=== PATIENT | female | born 1980 | race Caucasian/White ===

== ENCOUNTER 2020-08-03 17:20 | Emergency (ER) | payer OTHER ==
[~2020-08-03] VITALS: Ht 160 cm; Wt 69.9 kg
[2020-08-03 17:39] VITALS: Ht 160 cm; Wt 69.9 kg
[2020-08-03 18:21] LABS: UA SPECIFIC GRAVITY 1.015 (1.005-1.035); microscopic required? YES; urine erythrocyte 2+ (NEGATIVE)
[2020-08-03 18:29] LABS: BASOPHIL % 1.1 % (0.2-1.3); PLATELET COUNT 370 x10^3mcL (179-408); RED CELL DISTRIBUTION WIDTH 14.5 % (12.3-17.7)
[2020-08-03 18:38] LABS: CALCIUM 8.8 mg/dL (8.5-10.1); CARBON DIOXIDE 25.1 mmol/L (21-32); CHLORIDE SERUM 102 mmol/L (98-107); CREATININE SERUM 0.7 mg/dL (0.6-1.0); GFR1 > 60 mL/min; GLUCOSE SERUM 94 mg/dL (74-106); POTASSIUM SERUM 3.9 mmol/L (3.5-5.1); SODIUM SERUM 138 mmol/L (136-145)
[2020-08-03 18:46] LABS: ALKALINE PHOSPHATASE 33 U/L (46-116); ALT/SGPT 17 U/L (14-59); AST/SGOT 16 U/L (15-37); BILIRUBIN TOTAL 0.5 mg/dL (0.20-1.00); TOTAL PROTEIN, SERUM 7.1 g/dL (6.4-8.2)
[2020-08-03 18:50] LABS: ALBUMIN 3.2 g/dL (3.4-5.0)
[2020-08-03] MEDS ORDERED: FLEET GLYCERIN RC (21:27)
[2020-08-03] MEDS ORDERED: NAPROXEN375 MG PO (21:27)
[2020-08-03] MEDS ORDERED: MIRALAX17 GM PO (21:27)
[2020-08-03 22:28] VITALS: BP 100/61
== END 2020-08-03 22:28 | disposition home or self-care (01) ==
LOC: ED 17:20
PROVIDERS: Emergency Medicine
DX: K59.00 Constipation, unspecified (principal); N83.202 Unspecified ovarian cyst, left side; N83.201 Unspecified ovarian cyst, right side
CPT/HCPCS: J1885; J2405; J3010